=== PATIENT | female | born 1960 | race Caucasian/White ===

== ENCOUNTER → 2024-10-17 | Outpatient (CLI) | payer BC, SELFPAY | END | disposition home or self-care (01) | PROVIDERS: Visit Provider Surgery | DX: S81.802A Unspecified open wound, left lower leg, initial encounter (principal); S91.302A Unspecified open wound, left foot, initial encounter; X58.XXXA Exposure to other specified factors, initial encounter; H91.8X3 Other specified hearing loss, bilateral; M77.32 Calcaneal spur, left foot; J45.909 Unspecified asthma, uncomplicated; I10 Essential (primary) hypertension | CPT/HCPCS: 11042; 97597; 99213; A9270; G0463 ==

== ENCOUNTER → 2024-10-25 | Outpatient (CLI) | payer BC, SELFPAY | END | disposition home or self-care (01) | LOC: SWHD 13:08 | PROVIDERS: PCP Family Medicine; Referring Provider Family Medicine; Visit Provider Student in an Organized Health Care Education/Training Program | DX: S81.802A Unspecified open wound, left lower leg, initial encounter (principal); S91.302A Unspecified open wound, left foot, initial encounter; X58.XXXA Exposure to other specified factors, initial encounter; H91.8X3 Other specified hearing loss, bilateral; M77.32 Calcaneal spur, left foot; J45.909 Unspecified asthma, uncomplicated; I10 Essential (primary) hypertension | CPT/HCPCS: 11042; A9270 ==

== ENCOUNTER → 2024-11-01 | Outpatient (CLI) | payer BC, SELFPAY | END | disposition home or self-care (01) | LOC: SWHD 13:27 | PROVIDERS: PCP Family Medicine; Referring Provider Family Medicine; Visit Provider Student in an Organized Health Care Education/Training Program | DX: S91.302A Unspecified open wound, left foot, initial encounter (principal); X58.XXXA Exposure to other specified factors, initial encounter; H91.8X3 Other specified hearing loss, bilateral; M77.32 Calcaneal spur, left foot; I10 Essential (primary) hypertension | CPT/HCPCS: 11042; A9270 ==

== ENCOUNTER → 2024-11-04 | Outpatient (CLI) | payer BC, SELFPAY | END | disposition home or self-care (01) | LOC: SWHD 10:11 | PROVIDERS: PCP Family Medicine; Referring Provider Family Medicine; Visit Provider Surgery | DX: S91.302A Unspecified open wound, left foot, initial encounter (principal); X58.XXXA Exposure to other specified factors, initial encounter; H91.8X3 Other specified hearing loss, bilateral; M77.32 Calcaneal spur, left foot; J45.909 Unspecified asthma, uncomplicated; I10 Essential (primary) hypertension | CPT/HCPCS: 29581 ==

== ENCOUNTER → 2024-11-08 | Outpatient (CLI) | payer BC, SELFPAY | END | disposition home or self-care (01) | LOC: SWHD 12:41 | PROVIDERS: PCP Family Medicine; Referring Provider Family Medicine; Visit Provider Student in an Organized Health Care Education/Training Program | DX: S91.302A Unspecified open wound, left foot, initial encounter (principal); X58.XXXA Exposure to other specified factors, initial encounter; H91.8X3 Other specified hearing loss, bilateral; M77.32 Calcaneal spur, left foot; J45.909 Unspecified asthma, uncomplicated; I10 Essential (primary) hypertension | CPT/HCPCS: 97597; A9270 ==

== ENCOUNTER → 2024-11-15 | Outpatient (CLI) | payer BC, SELFPAY | END | disposition home or self-care (01) | LOC: SWHD 09:48 | PROVIDERS: PCP Family Medicine; Referring Provider Family Medicine; Visit Provider Student in an Organized Health Care Education/Training Program | DX: S91.302A Unspecified open wound, left foot, initial encounter (principal); X58.XXXA Exposure to other specified factors, initial encounter; H91.8X3 Other specified hearing loss, bilateral; M77.32 Calcaneal spur, left foot; J45.909 Unspecified asthma, uncomplicated; I10 Essential (primary) hypertension | CPT/HCPCS: 11042; A9270 ==

== ENCOUNTER → 2024-11-22 | Outpatient (CLI) | payer BC, SELFPAY | END | disposition home or self-care (01) | LOC: SWHD 09:40 | PROVIDERS: PCP Family Medicine; Referring Provider Family Medicine; Visit Provider Student in an Organized Health Care Education/Training Program | DX: S91.302A Unspecified open wound, left foot, initial encounter (principal); X58.XXXA Exposure to other specified factors, initial encounter; H91.8X3 Other specified hearing loss, bilateral; M77.32 Calcaneal spur, left foot; J45.909 Unspecified asthma, uncomplicated; I10 Essential (primary) hypertension | CPT/HCPCS: 11042; A9270 ==

== ENCOUNTER → 2024-11-24 | Outpatient (CLI) | payer BC, SELFPAY | END | disposition home or self-care (01) | LOC: SWHD 08:25 | PROVIDERS: PCP Family Medicine; Referring Provider Family Medicine; Visit Provider Student in an Organized Health Care Education/Training Program | DX: S91.302A Unspecified open wound, left foot, initial encounter (principal); X58.XXXA Exposure to other specified factors, initial encounter; H91.8X3 Other specified hearing loss, bilateral; M77.32 Calcaneal spur, left foot; J45.909 Unspecified asthma, uncomplicated; I10 Essential (primary) hypertension | CPT/HCPCS: 29581 ==

== ENCOUNTER → 2024-11-29 | Outpatient (CLI) | payer BC, SELFPAY | END | disposition home or self-care (01) | LOC: SWHD 10:34 | PROVIDERS: PCP Family Medicine; Referring Provider Family Medicine; Visit Provider Surgery | DX: S91.302A Unspecified open wound, left foot, initial encounter (principal); X58.XXXA Exposure to other specified factors, initial encounter; H91.8X3 Other specified hearing loss, bilateral; M77.32 Calcaneal spur, left foot; J45.909 Unspecified asthma, uncomplicated | CPT/HCPCS: 11042; A9270 ==

== ENCOUNTER → 2024-12-06 | Outpatient (CLI) | payer BC, SELFPAY | END | disposition home or self-care (01) | LOC: SWHD 09:37 | PROVIDERS: PCP Family Medicine; Referring Provider Family Medicine; Visit Provider Student in an Organized Health Care Education/Training Program | DX: S91.302A Unspecified open wound, left foot, initial encounter (principal); X58.XXXA Exposure to other specified factors, initial encounter; H91.8X3 Other specified hearing loss, bilateral; M77.32 Calcaneal spur, left foot; J45.909 Unspecified asthma, uncomplicated | CPT/HCPCS: 11042; A9270 ==

== ENCOUNTER → 2024-12-09 | Outpatient (CLI) | payer BC, SELFPAY | END | disposition home or self-care (01) | LOC: SWHD 11:40 | PROVIDERS: PCP Family Medicine; Referring Provider Family Medicine; Visit Provider Physician Assistant | DX: S91.302A Unspecified open wound, left foot, initial encounter (principal); X58.XXXA Exposure to other specified factors, initial encounter; H91.8X3 Other specified hearing loss, bilateral; M77.32 Calcaneal spur, left foot; J45.909 Unspecified asthma, uncomplicated | CPT/HCPCS: 29581 ==

== ENCOUNTER → 2024-12-13 | Outpatient (CLI) | payer BC, SELFPAY | END | disposition home or self-care (01) | LOC: SWHD 09:40 | PROVIDERS: PCP Family Medicine; Referring Provider Family Medicine; Visit Provider Student in an Organized Health Care Education/Training Program | DX: S91.302A Unspecified open wound, left foot, initial encounter (principal); X58.XXXA Exposure to other specified factors, initial encounter; L97.822 Non-pressure chronic ulcer of other part of left lower leg with fat layer exposed; H91.8X3 Other specified hearing loss, bilateral; M77.32 Calcaneal spur, left foot; J45.909 Unspecified asthma, uncomplicated | CPT/HCPCS: 11042; A9270 ==

== ENCOUNTER → 2024-12-20 | Outpatient (CLI) | payer BC, SELFPAY | END | disposition home or self-care (01) | LOC: SWHD 09:27 | PROVIDERS: PCP Family Medicine; Referring Provider Family Medicine; Visit Provider Student in an Organized Health Care Education/Training Program | DX: S91.301A Unspecified open wound, right foot, initial encounter (principal); X58.XXXA Exposure to other specified factors, initial encounter; L97.822 Non-pressure chronic ulcer of other part of left lower leg with fat layer exposed; H91.8X3 Other specified hearing loss, bilateral; M77.32 Calcaneal spur, left foot; J45.909 Unspecified asthma, uncomplicated | CPT/HCPCS: 11042; A9270 ==

== ENCOUNTER → 2024-12-27 | Outpatient (CLI) | payer BC, SELFPAY | END | disposition home or self-care (01) | LOC: SWHD 10:41 | PROVIDERS: PCP Family Medicine; Referring Provider Family Medicine; Visit Provider Student in an Organized Health Care Education/Training Program | DX: S91.301A Unspecified open wound, right foot, initial encounter (principal); X58.XXXA Exposure to other specified factors, initial encounter; L97.822 Non-pressure chronic ulcer of other part of left lower leg with fat layer exposed; H91.8X3 Other specified hearing loss, bilateral; M77.32 Calcaneal spur, left foot; J45.909 Unspecified asthma, uncomplicated | CPT/HCPCS: 11042; A9270 ==

== ENCOUNTER → 2024-12-29 | Outpatient (CLI) | payer BC, SELFPAY | END | disposition home or self-care (01) | PROVIDERS: PCP Family Medicine; Referring Provider Family Medicine; Visit Provider Student in an Organized Health Care Education/Training Program | DX: L02.414 Cutaneous abscess of left upper limb (principal); S81.801A Unspecified open wound, right lower leg, initial encounter; X58.XXXA Exposure to other specified factors, initial encounter; L97.822 Non-pressure chronic ulcer of other part of left lower leg with fat layer exposed; H91.8X3 Other specified hearing loss, bilateral; M77.32 Calcaneal spur, left foot; J45.909 Unspecified asthma, uncomplicated | CPT/HCPCS: 29581 ==

== ENCOUNTER → 2025-01-03 | Outpatient (CLI) | payer BC, SELFPAY | END | disposition home or self-care (01) | LOC: SWHD 09:22 | PROVIDERS: PCP Family Medicine; Referring Provider Family Medicine; Visit Provider Student in an Organized Health Care Education/Training Program | DX: I96 Gangrene, not elsewhere classified (principal); L97.822 Non-pressure chronic ulcer of other part of left lower leg with fat layer exposed; H91.8X3 Other specified hearing loss, bilateral; M77.32 Calcaneal spur, left foot; J45.909 Unspecified asthma, uncomplicated | CPT/HCPCS: 11042; A9270 ==

== ENCOUNTER → 2025-01-10 | Outpatient (CLI) | payer BC, SELFPAY | END | disposition home or self-care (01) | LOC: SWHD 10:11 | PROVIDERS: PCP Family Medicine; Referring Provider Family Medicine; Visit Provider Student in an Organized Health Care Education/Training Program | DX: I96 Gangrene, not elsewhere classified (principal); L97.822 Non-pressure chronic ulcer of other part of left lower leg with fat layer exposed; H91.8X3 Other specified hearing loss, bilateral; M77.32 Calcaneal spur, left foot; J45.909 Unspecified asthma, uncomplicated | CPT/HCPCS: 11042; A9270 ==

== ENCOUNTER → 2025-01-17 | Outpatient (CLI) | payer BC, SELFPAY | END | disposition home or self-care (01) | LOC: SWHD 09:27 | PROVIDERS: PCP Family Medicine; Referring Provider Family Medicine; Visit Provider Student in an Organized Health Care Education/Training Program | DX: I96 Gangrene, not elsewhere classified (principal); L97.822 Non-pressure chronic ulcer of other part of left lower leg with fat layer exposed; H91.8X3 Other specified hearing loss, bilateral; M77.32 Calcaneal spur, left foot; J45.909 Unspecified asthma, uncomplicated | CPT/HCPCS: 11042; A9270 ==

== ENCOUNTER → 2025-01-31 | Outpatient (CLI) | payer BC, SELFPAY | END | disposition home or self-care (01) | LOC: SWHD 14:01 | PROVIDERS: PCP Family Medicine; Referring Provider Family Medicine; Visit Provider Student in an Organized Health Care Education/Training Program | DX: I96 Gangrene, not elsewhere classified (principal); L97.822 Non-pressure chronic ulcer of other part of left lower leg with fat layer exposed; M77.32 Calcaneal spur, left foot; J45.909 Unspecified asthma, uncomplicated | CPT/HCPCS: 11042; A9270 ==

== ENCOUNTER → 2025-02-08 | Outpatient (CLI) | payer BC, SELFPAY | END | disposition home or self-care (01) | LOC: SWHD 09:00 | PROVIDERS: PCP Family Medicine; Referring Provider Family Medicine; Visit Provider Student in an Organized Health Care Education/Training Program | DX: I96 Gangrene, not elsewhere classified (principal); L97.822 Non-pressure chronic ulcer of other part of left lower leg with fat layer exposed; H91.8X3 Other specified hearing loss, bilateral; M77.32 Calcaneal spur, left foot; J45.909 Unspecified asthma, uncomplicated | CPT/HCPCS: 11042; A9270 ==

== ENCOUNTER → 2025-02-16 | Outpatient (CLI) | payer BC, SELFPAY | END | disposition home or self-care (01) | PROVIDERS: PCP Family Medicine; Referring Provider Family Medicine; Visit Provider Student in an Organized Health Care Education/Training Program | DX: I96 Gangrene, not elsewhere classified (principal); L97.822 Non-pressure chronic ulcer of other part of left lower leg with fat layer exposed; H91.8X3 Other specified hearing loss, bilateral; M77.32 Calcaneal spur, left foot; J45.909 Unspecified asthma, uncomplicated | CPT/HCPCS: 11042; A9270 ==

== ENCOUNTER → 2025-02-23 | Outpatient (CLI) | payer BC, SELFPAY | END | disposition home or self-care (01) | LOC: SWHD 08:53 | PROVIDERS: PCP Family Medicine; Referring Provider Family Medicine; Visit Provider Student in an Organized Health Care Education/Training Program | DX: I96 Gangrene, not elsewhere classified (principal); L97.822 Non-pressure chronic ulcer of other part of left lower leg with fat layer exposed; H91.8X3 Other specified hearing loss, bilateral; M77.32 Calcaneal spur, left foot; J45.909 Unspecified asthma, uncomplicated | CPT/HCPCS: 97597; A9270 ==

== ENCOUNTER → 2025-03-02 | Outpatient (CLI) | payer BC, SELFPAY | END | disposition home or self-care (01) | PROVIDERS: PCP Family Medicine; Referring Provider Family Medicine; Visit Provider Surgery | DX: I96 Gangrene, not elsewhere classified (principal); L97.822 Non-pressure chronic ulcer of other part of left lower leg with fat layer exposed; H91.8X3 Other specified hearing loss, bilateral; M77.32 Calcaneal spur, left foot; J45.909 Unspecified asthma, uncomplicated | CPT/HCPCS: 11042; A9270 ==

== ENCOUNTER → 2025-03-07 | Outpatient (CLI) | payer BC, SELFPAY | END | disposition home or self-care (01) | LOC: SWHD 08:00 | PROVIDERS: PCP Family Medicine; Referring Provider Family Medicine; Visit Provider Surgery | DX: I96 Gangrene, not elsewhere classified (principal); L97.822 Non-pressure chronic ulcer of other part of left lower leg with fat layer exposed; H91.8X3 Other specified hearing loss, bilateral; M77.32 Calcaneal spur, left foot; J45.909 Unspecified asthma, uncomplicated | CPT/HCPCS: 29581 ==

== ENCOUNTER → 2025-03-14 | Outpatient (CLI) | payer BC, SELFPAY | END | disposition home or self-care (01) | LOC: SWHD 08:09 | PROVIDERS: PCP Family Medicine; Referring Provider Family Medicine; Visit Provider Student in an Organized Health Care Education/Training Program | DX: I96 Gangrene, not elsewhere classified (principal); L97.822 Non-pressure chronic ulcer of other part of left lower leg with fat layer exposed; H91.8X3 Other specified hearing loss, bilateral; M77.32 Calcaneal spur, left foot; J45.909 Unspecified asthma, uncomplicated | CPT/HCPCS: 97597; A9270 ==